=== PATIENT | female | born 1980 | race Caucasian/White ===

== ENCOUNTER → 2017-02-27 | Outpatient (REF) | payer OTHER | LOC: M LAB REF 09:41 | DX: J02.9 Acute pharyngitis, unspecified (principal) ==

== ENCOUNTER → 2018-04-07 | Outpatient (REF) | payer BC ==
[2018-04-07 16:25] LABS: INFLUENZA A AMPLIFICATION POSITIVE (NEGATIVE); INFLUENZA B AMPLIFICATION NEGATIVE (NEGATIVE)
== END ==
LOC: M LAB REF 15:25
PROVIDERS: ATTEND Physician Assistant
DX: J11.1 Influenza due to unidentified influenza virus with other respiratory manifestations (principal)

== ENCOUNTER → 2018-09-30 | Outpatient (REF) | payer BC ==
[2018-09-30 17:23] LABS: BASO % 0.2 % (0.0-1.0); EOS # 0.2 10^3/uL (0.0-0.50); EOS % 1.2 % (0.0-3.0); HEMATOCRIT 42.8 % (36.0-47.0); HEMOGLOBIN 14.4 g/dl (12.0-15.5); LYMPH # 3.2 10^3/uL (1.5-4.5); LYMPH % 23.5 % (24.0-44.0); MEAN CORPUSCULAR HEMOGLOBIN 31.7 pg (27.0-33.0); MEAN CORPUSCULAR HGB CONC 33.6 g/dl (32.0-36.5); MEAN CORPUSCULAR VOLUME 94.3 fl (80.0-96.0); MONO # 0.6 10^3/uL (0.0-0.8); MONO % 4.2 % (0.0-5.0); NEUTROPHILS # 9.7 10^3/uL (1.8-7.7); NEUTROPHILS % 70.5 % (36.0-66.0); PLATELET COUNT, AUTOMATED 328 10^3/uL (150-450); RED BLOOD COUNT 4.54 10^6/uL (4.00-5.40); WHITE BLOOD COUNT 13.7 10^3/uL (4.0-10.0)
[2018-09-30 17:38] LABS: ALBUMIN 4.1 GM/DL (3.2-5.2); ALT/SGPT 31 U/L (12-78); BILIRUBIN,TOTAL 0.3 MG/DL (0.2-1.0); BLOOD UREA NITROGEN 11 MG/DL (7-18); CALCIUM LEVEL 8.7 MG/DL (8.5-10.1); CARBON DIOXIDE LEVEL 26 MEQ/L (21-32); CHLORIDE LEVEL 110 MEQ/L (98-107); CHOLESTEROL LEVEL 114 MG/DL (<200); FREE T4 0.98 NG/DL (0.76-1.46); GLOMERULAR FILTRATION RATE > 60.0 (>58); GLUCOSE, FASTING 90 MG/DL (70-100); HDL CHOLESTEROL 38 MG/DL (>40); LDL CHOLESTEROL 65 MG/DL (<100); NON-HDL-C 76 MG/DL; POTASSIUM SERUM 4.7 MEQ/L (3.5-5.1); SODIUM LEVEL 142 MEQ/L (136-145); TOTAL PROTEIN 6.7 GM/DL (6.4-8.2); TRIGLYCERIDES LEVEL 55 MG/DL (<150)
[2018-09-30 17:43] LABS: HEMOGLOBIN A1c 5.7 %
== END ==
LOC: M LAB REF 16:31
PROVIDERS: ATTEND Nurse Practitioner Family
DX: Z00.00 Encounter for general adult medical examination without abnormal findings (principal)

== ENCOUNTER → 2019-01-13 | Outpatient (REF) | payer BC ==
[2019-01-13 17:21] LABS: APPEARANCE, URINE TURBID (CLEAR); BACTERIA, URINE AUTO NEGATIVE (NEGATIVE); BILIRUBIN, URINE AUTO NEGATIVE (NEGATIVE); BLOOD, URINE BLOOD NEGATIVE (NEGATIVE); COLOR, URINE AMBER (YELLOW); GLUCOSE, URINE (UA) AUTO NEGATIVE (NEGATIVE); KETONE, URINE AUTO NEGATIVE (NEGATIVE); LEUKOCYTE ESTERASE, URINE AUTO NEGATIVE (NEGATIVE); MUCUS, URINE SMALL (NEGATIVE); NITRITE, URINE AUTO NEGATIVE (NEGATIVE); PROTEIN, URINE AUTO NEGATIVE (NEGATIVE); RBC, URINE AUTO 2 /HPF (0-3); SPECIFIC GRAVITY URINE AUTO 1.026 (1.002-1.035); SQUAMOUS EPITHELIAL CELL UR AU 2 /HPF (0-6); WBC, URINE AUTO 1 /HPF (0-3)
== END ==
LOC: M LAB REF 16:16
PROVIDERS: ATTEND Nurse Practitioner Family
DX: R30.0 Dysuria (principal)

== ENCOUNTER 2020-07-18 09:15 | Outpatient (RCR) | payer OTHER | END 2020-07-22 | LOC: M PT 09:15 | PROVIDERS: ATTEND Orthopaedic Surgery Sports Medicine | DX: S46.012D Strain of muscle(s) and tendon(s) of the rotator cuff of left shoulder, subsequent encounter (principal); W18.30XD Fall on same level, unspecified, subsequent encounter; Y92.009 Unspecified place in unspecified non-institutional (private) residence as the place of occurrence of the external cause ==

== ENCOUNTER → 2020-08-16 | Outpatient (CLI) | payer BC ==
--- NOTE | 2020-08-16 10:22 | REP ---
INDICATION: RADICULOPATHY. NO HISTORY OF TRAUMA WHATSOEVER COMPARISON: None. TECHNIQUE: Eight views were obtained FINDINGS: Moderate disc space narrowing is seen C4-5, C5-6, and C6-7 were anterior and posterior osteophytic ridging is the heaviest. The facet joints are well aligned bilaterally. There is evidence of flexion and particularly extension radiographically. Secondary to external artifact the upper cervical spine cannot be evaluated on the AP view or the open-mouth view. The intervertebral foramina appear ample bilaterally, however, the oblique views are suboptimal Vertebral body height and alignment appears to be within normal limits. There is a soft tissue calcification in the posterior soft tissues at the C5-6 level. IMPRESSION: Chronic changes and exam limitations as described above. <Electronically signed by Theo Mejias > 08/16/20 [id number]
== END ==
LOC: M SOG 08:49
PROVIDERS: ATTEND Orthopaedic Surgery Sports Medicine
DX: M54.12 Radiculopathy, cervical region (principal)

== ENCOUNTER 2020-08-20 12:54 | Outpatient (RCR) | payer OTHER | END 2020-08-21 | LOC: M PT 12:54 | PROVIDERS: ATTEND Orthopaedic Surgery Sports Medicine | DX: S46.012A Strain of muscle(s) and tendon(s) of the rotator cuff of left shoulder, initial encounter (principal); W18.30XA Fall on same level, unspecified, initial encounter; Y92.009 Unspecified place in unspecified non-institutional (private) residence as the place of occurrence of the external cause ==

== ENCOUNTER 2020-09-12 08:57 | Outpatient (RCR) | payer OTHER | END 2020-09-21 | LOC: M PT 08:57 | PROVIDERS: ATTEND Orthopaedic Surgery Sports Medicine | DX: S46.012A Strain of muscle(s) and tendon(s) of the rotator cuff of left shoulder, initial encounter (principal) ==

== ENCOUNTER → 2020-10-06 | Outpatient (CLI) | payer OTHER ==
--- NOTE | 2020-10-06 10:17 | REP ---
INDICATION: LT SHOULDER PAIN W/ IMPINGMENT SYNDROME. COMPARISON: None. TECHNIQUE: Long and short axes water density and fat density scans were obtained FINDINGS: The rotator cuff is intact. There is no abnormal bony signal. There is several small paralabral cysts. There is no labral tear. The bicipital tendon is intact. The shoulder muscles are all intact. IMPRESSION: Several small paralabral cysts. Otherwise unremarkable MRI of the shoulder. <Electronically signed by Jacob Mracus > 10/06/20 [id number]
== END ==
LOC: M RAD 09:03
PROVIDERS: ATTEND Orthopaedic Surgery Sports Medicine
DX: M75.42 Impingement syndrome of left shoulder (principal)

== ENCOUNTER → 2020-10-22 | Outpatient (RCR) | payer OTHER ==
[~2020-10-22] MED LIST: METH20TA PO
== END ==
LOC: M PT 09-24 09:01
PROVIDERS: ATTEND Orthopaedic Surgery Sports Medicine
DX: S46.012D Strain of muscle(s) and tendon(s) of the rotator cuff of left shoulder, subsequent encounter (principal); W18.30XD Fall on same level, unspecified, subsequent encounter; Y92.009 Unspecified place in unspecified non-institutional (private) residence as the place of occurrence of the external cause

== ENCOUNTER 2020-10-30 15:02 | Outpatient (RCR) | payer OTHER | END 2020-11-21 | LOC: M PT 15:02 | PROVIDERS: ATTEND Orthopaedic Surgery Sports Medicine | DX: S46.012D Strain of muscle(s) and tendon(s) of the rotator cuff of left shoulder, subsequent encounter (principal); W18.30XD Fall on same level, unspecified, subsequent encounter; Y92.009 Unspecified place in unspecified non-institutional (private) residence as the place of occurrence of the external cause ==

== ENCOUNTER → 2020-11-08 | Outpatient (CLI) | payer OTHER | LOC: M LABSMTC 11:11 | PROVIDERS: ATTEND Anesthesiology | DX: Z01.812 Encounter for preprocedural laboratory examination (principal); Z20.822 Contact with and (suspected) exposure to COVID-19 ==

== ENCOUNTER 2020-11-13 06:09 | Day surgery (SDC) | payer OTHER ==
[~2020-11-13] VITALS: Ht 157.5 cm; Wt 88.0 kg
[~2020-11-13 06:09] MED LIST changes: +LR 1,000 ML IV ONE; +ceFAZolin SOD 1 GM in D5W MINI-BAG PLUS 50 ML IV ONE
[2020-11-13] MEDS ORDERED: ceFAZolin SOD 1 GM in D5W MINI-BAG PLUS 50 ML IV ONE (06:15)
[2020-11-13] MEDS ORDERED: MIDAZOLAM INJ 2MG/2ML VIAL (J2250 PER 1MG) As Ordered ONE (06:56)
[2020-11-13] MEDS ORDERED: dexameTHASONE 4 MG/ML 1ML VIAL (J1100 PER 1MG) As Ordered ONE (06:57)
[2020-11-13] MEDS ORDERED: ONDANSETRON 4MG/2ML VIAL As Ordered ONE (06:57)
[2020-11-13] MEDS ORDERED: fentaNYL 100 MCG/2 ML INJECTION (J3010) As Ordered ONE (06:57)
[2020-11-13] MEDS ORDERED: propofoL 200 MG/20 ML VIAL As Ordered ONE (06:58)
[2020-11-13] MEDS ORDERED: ROCURONIUM BROMIDE 50 MG/5 ML VIAL As Ordered ONE (06:58)
[2020-11-13] MEDS ORDERED: ACETAMINOPHEN 1000MG 100ML IV BTL (OFIRMEV) (J0131 PER 10MG) As Ordered ONE (06:58)
[2020-11-13] MEDS ORDERED: SUGAMMADEX SODIUM 500 MG/5 ML VIAL (BRIDION) As Ordered ONE (06:58)
[2020-11-13] MEDS ORDERED: LIDOCAINE 2% 100MG/5ML SDV (FOR ANES.) As Ordered ONE (06:58)
[2020-11-13] MEDS ORDERED: dexameTHASONE 10MG/1ML VIAL PRES.FREE (J1100 PER 1MG) XX ONE (07:00)
[2020-11-13] MEDS ORDERED: EPINEPHrine INJ 1 MG/ML 1ML AMP XX ONE (07:00)
[2020-11-13] MEDS ORDERED: LIDOCAINE 1% MDV 20ML VIAL XX ONE (07:00)
[2020-11-13] MEDS ORDERED: ROPIvacaine 0.5% 30ML INJECTION (J2795 PER 1MG) XX ONE (07:00)
[2020-11-13] MEDS ORDERED: MIDAZOLAM INJ 2MG/2ML VIAL (J2250 PER 1MG) IV PRN (07:01)
[2020-11-13] MEDS ORDERED: fentaNYL 100 MCG/2 ML INJECTION (J3010) IV PRN ×2 (07:01→09:50)
[2020-11-13] MEDS ORDERED: EPINEPHrine INJ 1 MG/ML 1ML AMP As Ordered ONE ×2 (07:07→07:12)
[2020-11-13] MEDS ORDERED: LIDOCAINE 1% MDV 20ML VIAL As Ordered ONE (07:07)
[2020-11-13] MEDS ORDERED: PHENYLephrine 500MCG 5ML (100MCG/ML) SYRINGE As Ordered ONE (08:50)
[2020-11-13] MEDS ORDERED: ePHEDrine SULFATE 25 MG/5 ML(5MG/ML) SYRINGE As Ordered ONE (08:50)
[2020-11-13] MEDS ORDERED: METOCLOPRAMIDE INJ 10MG/2ML VIAL (J2765 PER 1) IV PRN (09:50)
[2020-11-13] MEDS ORDERED: ONDANSETRON 4MG/2ML VIAL IV PRN ×2 (09:50→10:00)
[2020-11-13] MEDS ORDERED: LR 1,000 ML IV SCH ×2 (09:50→09:55)
[2020-11-13] MEDS: oxyCODONE 5MG TAB PO PRN ×2 (09:54→10:59)
[2020-11-13] MEDS ORDERED: ACETAMINOPHEN TAB 650MG DOSE (2X325MG) PO PRN (09:55)
[2020-11-13] MEDS ORDERED: MORPHINE 2 MG/ML 1ML VIAL (J2270) IV PRN (09:55)
[2020-11-13] MEDS ORDERED: PERCOCET 5MG/325MG TAB PO PRN (09:55)
--- NOTE | 2020-11-13 10:07 | ROOPDOC ---
[facility] Report Of Operation Report of Operation DATE OF PROCEDURE: 11/13/20 PREPROCEDURE DIAGNOSES: Left shoulder impingement syndrome and para labral cyst POSTPROCEDURE DIAGNOSES: Same. PROCEDURE PERFORMED: Left shoulder arthroscopy, subacromial decompression, decompression paralabral cyst and labral repair. SURGEON: Dr. Ian Galan MD SENIOR TALENT MANAGEMENT CONSULTANT: ANESTHESIA: General anesthesia preoperative block Dr. [place]. ESTIMATED BLOOD LOSS: Approximately 25 mL. COMPLICATIONS: None. REMARKS: FINDINGS: Small anterior labral tear and para labral cyst. SPECIMENS REMOVED: None PROCEDURE NOTE: This 40-year-old female had a small paralabral cyst and pain in the anterior / lateral aspect of the shoulder. We discussed the pros and cons risks and benefits of nonoperative management versus proceed with surgery I marked the left upper extremity. She had no further questions.. DESCRIPTION OF PROCEDURE: The patient was brought to the operating room theater. 2 g of IV Ancef was administered prior to the start of the case general anesthesia was induced. They placed lateral decubitus. Limb was prepped and draped in the usual sterile fashion with chlorhexidine base prep solution allowing over 3 minutes drying time prior to draping. 10 pounds of traction with the arm in 45 degrees of abduction was used. Preoperative timeout performed to confirm the site the patient and surgery. Began by making standard posterior arthroscopy portal. A spinal needle inside- out localization to perform 2 portals anteriorly one just posterior to the biceps tendon and one through the rotator interval superior to the subscapularis both 7 mm cannulas. In addition, lateral portal for subacromial work. I performed thorough diagnostic arthroscopy. Cartilage on the humeral head as well as the glenoid was normal. Biceps tendon appeared normal no fraying no synovitis stable root. Subscapularis appeared normal slight superior border fraying gently debrided. Insertion appeared normal. Undersurface of the supraspinatus and rest of the rotator cuff tendon appeared normal. There was a small labral tear anteriorly. I used the elevator to elevate the labrum decompress the cyst. I used shaving instrument to gently debride in that area as well as create a roughened surface of bleeding bone for healing. I used the 25 degree suture lasso curved to the left to passed the nitinol wire. I then used labral tape and a luggage tag stitch configuration. I then passed this into a 2.9 mm Arthrex push lock anchor drilled and inserted this at an appropriate location at the edge of the glenoid. This was stable and solid to probing. I next inserted the arthroscope in the subacromial space. I performed a thorough bursectomy. I performed subacromial decompression for 5 mm down to flat margins. I probed the superior aspect of the rotator cuff tendons no obvious tears. Pictures were taken and saved throughout the case onto the system. Case was terminated arthroscope withdrawn. Wounds cleaned with wet and dry dressing. Portal sites closed with 3-0 Monocryl sutures followed by Steri-Strips Adaptic 4 x 8's gauze abdominal pad dressings and cloth tape as well as a sling for the upper extremity. Patient woken up from the general acetic trans off the operating room table and taken to postanesthetic care unit in stable condition. All sponge needle instrument counts were correct no complications. Plan to the patient start immediate pendulum exercises hand wrist and elbow exercises follow-up in the office in 2 weeks time be discharged home according to day surgery criteria. Postoperative wound instructions were given. It was recommended to keep the wound clean and dry. Dressing changes as needed. It was reinforced with the patient that they should call us or be seen immediately for redness, drainage, or fever. Risk factors for harms from taking opioid medications discussed and assessed inc luding but not limited to personal or family history of substance use disorder, anxiety or depression, , age 65 or older, COPD or other underlying respiratory conditions, and renal or hepatic insufficiency. Discussed with patient concerns and determined any harms they may experience or be currently experiencing such as nausea or constipation, feeling sedated or confused, breathing interruptions during sleep, or taking or craving more opioids than prescribed or difficulty controlling use (addiction). Discussed early warning signs of overdose including confusion, sedation, slurred speech, abnormal gait. IAN GALAN MD Nov 13, 2020 10:07
[2020-11-13 11:45] VITALS: BP 118/63
== END 2020-11-13 11:55 | disposition home or self-care (01) ==
LOC: M SDC 06:09
PROVIDERS: ATTEND Orthopaedic Surgery Sports Medicine
DX: M75.42 Impingement syndrome of left shoulder (principal); S43.492A Other sprain of left shoulder joint, initial encounter; X58.XXXA Exposure to other specified factors, initial encounter; Y92.89 Other specified places as the place of occurrence of the external cause; F32.9 Major depressive disorder, single episode, unspecified; F17.210 Nicotine dependence, cigarettes, uncomplicated; Z88.2 Allergy status to sulfonamides; Z79.899 Other long term (current) drug therapy
CPT/HCPCS: 29807; 29826; 64415; 81025; C1713; J0131; J0171; J0690; J1100; J2250; J2370; J2405; J2795; J3010

== ENCOUNTER 2020-12-19 10:34 | Outpatient (RCR) | payer OTHER ==
[~2020-12-19 10:34] MED LIST changes: -LR 1,000 ML IV ONE; -ceFAZolin SOD 1 GM in D5W MINI-BAG PLUS 50 ML IV ONE
== END 2020-12-22 ==
LOC: M PT 10:34
PROVIDERS: ATTEND Orthopaedic Surgery Sports Medicine
DX: Z47.89 Encounter for other orthopedic aftercare (principal); Z98.890 Other specified postprocedural states

== ENCOUNTER → 2021-01-21 | Outpatient (RCR) | payer OTHER | LOC: M PT 12-24 08:20 | PROVIDERS: ATTEND Orthopaedic Surgery Sports Medicine | DX: Z47.89 Encounter for other orthopedic aftercare (principal) ==

== ENCOUNTER 2021-02-20 08:23 | Outpatient (RCR) | payer OTHER | END 2021-02-21 | LOC: M PT 08:23 | PROVIDERS: ATTEND Orthopaedic Surgery Sports Medicine | DX: Z47.89 Encounter for other orthopedic aftercare (principal) ==

== ENCOUNTER 2021-03-20 09:43 | Outpatient (RCR) | payer OTHER | END 2021-03-24 | LOC: M PT 09:43 | PROVIDERS: ATTEND Orthopaedic Surgery Sports Medicine | DX: Z47.89 Encounter for other orthopedic aftercare (principal); M25.512 Pain in left shoulder ==

== ENCOUNTER 2021-04-10 09:49 | Outpatient (RCR) | payer OTHER | END 2021-04-21 | LOC: M PT 09:49 | PROVIDERS: ATTEND Orthopaedic Surgery Sports Medicine | DX: Z47.89 Encounter for other orthopedic aftercare (principal) ==

== ENCOUNTER → 2021-05-22 | Outpatient (RCR) | payer OTHER | LOC: M PT 05-01 14:56 | PROVIDERS: ATTEND Orthopaedic Surgery Sports Medicine | DX: S46.012A Strain of muscle(s) and tendon(s) of the rotator cuff of left shoulder, initial encounter (principal) ==

== ENCOUNTER 2021-06-10 12:08 | Outpatient (RCR) | payer OTHER | END 2021-06-21 | LOC: M PT 12:08 | PROVIDERS: ATTEND Orthopaedic Surgery Sports Medicine | DX: S46.012D Strain of muscle(s) and tendon(s) of the rotator cuff of left shoulder, subsequent encounter (principal); W18.30XD Fall on same level, unspecified, subsequent encounter ==

== ENCOUNTER → 2021-07-22 | Outpatient (RCR) | payer OTHER | LOC: M PT 07-03 10:39 | PROVIDERS: ATTEND Orthopaedic Surgery Sports Medicine | DX: S46.012A Strain of muscle(s) and tendon(s) of the rotator cuff of left shoulder, initial encounter (principal); W18.30XA Fall on same level, unspecified, initial encounter; Y92.009 Unspecified place in unspecified non-institutional (private) residence as the place of occurrence of the external cause ==

== ENCOUNTER 2021-07-30 09:46 | Outpatient (RCR) | payer OTHER | END 2021-08-21 | LOC: M PT 09:46 | PROVIDERS: ATTEND Orthopaedic Surgery Sports Medicine | DX: S46.012A Strain of muscle(s) and tendon(s) of the rotator cuff of left shoulder, initial encounter (principal) ==